=== PATIENT | female | born 1995 ===

== ENCOUNTER 2019-03-26 19:10 | Emergency (ER) | payer OTHER ==
[~2019-03-26] VITALS: Ht 175.3 cm; Wt 98.9 kg
[2019-03-27] MEDS ORDERED: KETO10TA2 PO (00:05)
[2019-03-27] MEDS ORDERED: LO LOESTRIN FE1 EACH PO (00:05)
== END 2019-03-27 00:14 | disposition home or self-care (01) ==
LOC: ER 19:10
DX: N83.291 Other ovarian cyst, right side (principal); R10.2 Pelvic and perineal pain

== ENCOUNTER 2019-06-03 14:28 | Emergency (ER) | payer OTHER ==
[~2019-06-03] VITALS: Ht 172.7 cm; Wt 95.3 kg
[~2019-06-03 14:28] MED LIST: KETO10TA2 PO; LO LOESTRIN FE1 EACH PO
== END 2019-06-03 15:58 | disposition home or self-care (01) ==
LOC: ER 14:28
DX: J02.9 Acute pharyngitis, unspecified (principal)